=== PATIENT | female | born 1955 | race Caucasian/White ===

== ENCOUNTER → 2020-02-24 | Outpatient (CLI) | payer OTHER ==
--- NOTE | 2020-02-24 10:39 | MM ---
Reason for exam: additional evaluation requested from prior study. History: Patient is postmenopausal and is nulliparous. Family history of breast cancer in sister at age 70. Benign excisional biopsy of the left breast, 1999. Took hormonal contraceptives for 30 years beginning at age 23. Took estrogen for 2 years beginning at age 56. Physical Findings: Nurse did not find any significant physical abnormalities on exam. MG 3D Diag Mammo W/Cad KEVIN Bilateral CC and MLO view(s) were taken. XCCL view(s) were taken of the left breast. No prior studies available for comparison. The breast tissue is heterogeneously dense. This may lower the sensitivity of mammography. Finding: There are typically benign coarse, segmental calcifications in the left breast. These results were verbally communicated with the patient and result sheet given to the patient on 02/24/20. ASSESSMENT: Benign, BI-RAD 2 RECOMMENDATION: Routine screening mammogram of both breasts in 1 year. Obtain prior studies for comparison.
== END | disposition home or self-care (01) ==
LOC: RADMAMWWP 09:01
PROVIDERS: ATTEND Internal Medicine Geriatric Medicine
DX: N63.10 Unspecified lump in the right breast, unspecified quadrant (principal); N63.20 Unspecified lump in the left breast, unspecified quadrant
CPT/HCPCS: 77062; 77066

== ENCOUNTER → 2020-03-09 | Outpatient (CLI) | payer OTHER ==
--- NOTE | 2020-03-09 16:38 | BD ---
EXAMINATION TYPE: Axial Bone Density DATE OF EXAM: 03/09/2020 COMPARISON: NONE CLINICAL HISTORY: 65 YR OLD FEMALE....ICD-10 CODE: M81.0 OSTEOPOROSIS Height: 61.1 Weight: 133 FRAX RISK QUESTIONS: Alcohol (3 or more units per day): YES RISK FACTORS HISTORY OF: Family History of Osteoporosis: RAIAS, HER MOTHER, WITH HIP FX Postmenopausal woman: YES AT ABOUT 48 YRS OLD Take estrogen and/or progesterone medications: IN THE PAST FOR ABOUT 3-4 YRS Hyperparathyroidism: NO Adrenal Insufficiency: NO MEDICATIONS: Prednisone or other steroids: STEROIDAL INJECTIONS FOR YRS Additional Medications: BP MEDS, EFFEXOR,ATIVAN , CALCIUM AND VIT D Additional History: HYPERTENSION, EXAM MEASUREMENTS: Bone mineral densitometry was performed using the Pull System. Bone mineral density as measured about the Lumbar spine is: ----- L1-L4(G/cm2): 1.294 T Score Values are as follows: ----- L1: 0.0 ----- L2: 1.8 ----- L3: 1.3 ----- L4: 0.5 ----- L1-L4: 0.9 Bone mineral density THIS IS HER FIRST BONE DENSITY AT [facility] Bone mineral density about the R hip (g/cm2): 0.936 Bone mineral density about the L hip (g/cm2): 0.858 T Score values are as follows: -----R Neck: -0.7 -----L Neck: -1.7 -----R Total: -0.6 -----L Total: -1.2 Bone mineral density FIRST BONE DENSITY AT [facility] FRAX%s: THERE IS A 12.2% CHANCE FOR A MAJOR OSTEOPOROTIC FX AND A 2.1% FOR HIP.....PROBABILITY FOR FX IN 10 YRS TIME IMPRESSION: Osteopenia (T Score between -2.5 and -1). There is slightly increased risk of fracture and the patient may be considered for treatment. Re-Screen 2-5 years. NOTE: T-SCORE=SD OF THE YOUNG ADULT MEAN.
== END | disposition home or self-care (01) ==
LOC: RADBDWWP 10:26
PROVIDERS: ATTEND Internal Medicine Geriatric Medicine
DX: M85.80 Other specified disorders of bone density and structure, unspecified site (principal); M81.0 Age-related osteoporosis without current pathological fracture
CPT/HCPCS: 77080

== ENCOUNTER 2021-01-08 02:21 | Emergency (ER) | payer BC, OTHER ==
[2021-01-08 02:42] VITALS: BP 163/80; PULSE 75; RESP 18; TEMP 97.9
--- NOTE | 2021-01-08 03:31 | ED ---
Recheck HPI - General Chief Complaint: Extremity Problem,Nontraumatic Stated Complaint: cast issues Time Seen by Provider: 01/08/21 02:38 Source: patient, RN notes reviewed, old records reviewed Mode of arrival: ambulatory Limitations: no limitations - History of Present Illness Initial Comments: This is a 65-year-old female to the emergency room today. Patient comes in for bandage reevaluation and pain in place over prior bandage was. No new injuries no new complaints. Patient feels like her like maybe swelling to much to the point of having increased pain. Eyes no shortness of breath or chest pain no fevers no other complaints MD Complaint: wound re-check -: days(s) Returns Today for: persistent/worsening pain related to initial visit Symptoms Since Prior Visit: worsening pain Associated Symptoms: none Treatments Prior to Arrival: dressings, Given Pain Meds on - Related Data Allergies Allergy/AdvReac Type Severity Reaction Status Date / Time No Known Allergies Allergy Verified 01/08/21 02:42 Review of Systems ROS Statement: Those systems with pertinent positive or pertinent negative responses have been documented in the HPI. ROS Other: All systems not noted in ROS Statement are negative. Past Medical History Past Medical History: No Reported History History of Any Multi-Drug Resistant Organisms: None Reported Additional Past Surgical History / Comment(s): left foot bunion surgery Past Psychological History: No Psychological Hx Reported Smoking Status: Never smoker Past Alcohol Use History: None Reported Past Drug Use History: None Reported General Exam - General Exam Comments Initial Comments: Wound is bandaged appropriately here in the ER General appearance: alert, in no apparent distress Head exam: Present: atraumatic, normocephalic, normal inspection Eye exam: Present: normal appearance, PERRL, EOMI. Absent: scleral icterus, conjunctival injection, periorbital swelling ENT exam: Present: normal exam, mucous membranes moist Neck exam: Present: normal inspection. Absent: tenderness, meningismus, lymphadenopathy Respiratory exam: Present: normal lung sounds bilaterally. Absent: respiratory distress, wheezes, rales, rhonchi, stridor Cardiovascular Exam: Present: regular rate, normal rhythm, normal heart sounds. Absent: systolic murmur, diastolic murmur, rubs, gallop, clicks GI/Abdominal exam: Present: soft, normal bowel sounds. Absent: distended, tenderness, guarding, rebound, rigid Extremities exam: Present: normal inspection, full ROM, normal capillary refill. Absent: tenderness, pedal edema, joint swelling, calf tenderness Back exam: Present: normal inspection Neurological exam: Present: alert, oriented X3, CN II-XII intact Psychiatric exam: Present: normal affect, normal mood Skin exam: Present: warm, dry, intact, normal color. Absent: rash Course Vital Signs 01/08/21 02:37 Temperature 97.9 F Pulse Rate 75 Respiratory 18 Rate Blood Pressure 163/80 O2 Sat by Pulse 96 Oximetry - Reevaluation(s) Reevaluation #1: 01/08/21 03:29 Record is reviewed Reevaluation #2: 01/08/21 03:30 We did remove patient's prior bandaged with adequate pain relief, wound is reviewed bandaged Medical Decision Making - Medical Decision Making 65 female to the emergency department for evaluation patient's wound is related bandaged here in the ER she has pain relief and can be discharged home Disposition Clinical Impression: Encounter for assessment of wound Disposition: HOME SELF-CARE Condition: Good Instructions (If sedation given, give patient instructions): Bandage Change (ED), How to Use an Elastic Bandage (ED) Is patient prescribed a controlled substance at d/c from ED?: No Referrals: Enrique Florentino MD [Primary Care Provider] - 1-2 days
== END 2021-01-08 03:41 | disposition home or self-care (01) ==
LOC: EC 02:21
DX: Z48.00 Encounter for change or removal of nonsurgical wound dressing (principal)
CPT/HCPCS: 99282

== ENCOUNTER 2021-01-28 20:33 | Emergency (ER) | payer BC ==
--- NOTE | 2021-01-28 21:59 | US ---
EXAMINATION TYPE: US venous doppler duplex LE LT DATE OF EXAM: 01/28/2021 9:45 PM COMPARISON: NONE CLINICAL HISTORY: pain behind left knee, left foot casted. EC patient with popliteal fossa and knee p ain post left bunionectomy; cast on left BK to foot x 1 week. SIDE PERFORMED: Left TECHNIQUE: The lower extremity deep venous system is examined utilizing real time linear array sonog rai with graded compression, doppler sonography and color-flow sonography. VESSELS IMAGED: Common Femoral Vein Deep Femoral Vein Greater Saphenous Vein * Femoral Vein Popliteal Vein Small Saphenous Vein * Proximal Calf Veins (* superficial vessels) Left Leg: Grayscale, color doppler, spectral doppler imaging performed of the deep veins of the lower extremities. There is normal flow, compressibility, vascular waveforms. Soft tissue edema posterior to the knee joint. IMPRESSION: No sonographic evidence for deep vein thrombosis in the left lower extremity.
--- NOTE | 2021-01-28 22:34 | ED ---
General Adult HPI - General Chief complaint: Extremity Injury, Lower Stated complaint: L Leg Swelling, R/O DVT Time Seen by Provider: 01/28/21 21:57 Source: patient, family Mode of arrival: ambulatory Limitations: no limitations - History of Present Illness Initial comments: 65-year-old female patient presents the emergency department today for evaluatio n of left posterior knee pain. Patient states started 3 weeks ago after having foot surgery. She has a cast. She denies swelling to the leg. Denies any fever or chills. Denies any increased pain with movement. Denies history of blood clots. Denies any recent long car rides. Denies any recent diagnosis of cancer. Denies use of blood thinning medications. - Related Data Allergies Allergy/AdvReac Type Severity Reaction Status Date / Time No Known Allergies Allergy Verified 01/28/21 20:46 Review of Systems ROS Statement: Those systems with pertinent positive or pertinent negative responses have been documented in the HPI. ROS Other: All systems not noted in ROS Statement are negative. Past Medical History Past Medical History: No Reported History History of Any Multi-Drug Resistant Organisms: None Reported Additional Past Surgical History / Comment(s): left foot bunion surgery Past Psychological History: No Psychological Hx Reported Smoking Status: Never smoker Past Alcohol Use History: Occasional Past Drug Use History: None Reported General Exam Limitations: no limitations General appearance: alert, in no apparent distress, other (This is a well- developed, well-nourished adult female patient in no acute distress.) ENT exam: Present: normal exam, normal oropharynx, mucous membranes moist Respiratory exam: Present: normal lung sounds bilaterally. Absent: respiratory distress, wheezes, rales, rhonchi, stridor Cardiovascular Exam: Present: regular rate, normal rhythm, normal heart sounds. Absent: systolic murmur, diastolic murmur, rubs, gallop, clicks Extremities exam: Present: full ROM, normal capillary refill, other (There is a cast to the left lower leg and foot. Skin to the remainder the leg is pink, warm, dry. Cap refill less than 3 seconds. No swelling noted.). Absent: tenderness, pedal edema, joint swelling, calf tenderness Neurological exam: Present: alert, oriented X3, CN II-XII intact Psychiatric exam: Present: normal affect, normal mood Skin exam: Present: warm, dry, intact, normal color. Absent: rash Course Vital Signs 01/28/21 01/28/21 20:40 22:52 Temperature 97.8 F 98 F Pulse Rate 96 79 Respiratory 22 20 Rate Blood Pressure 117/78 127/77 O2 Sat by Pulse 97 98 Oximetry Medical Decision Making - Medical Decision Making 65-year-old female patient presented to the emergency department today for evaluation possible blood clot to the left lower extremity. She didn't reporting left posterior knee pain. Physical examination is unremarkable. No swelling. No redness. Ultrasound was negative. Vital signs are normal. She'll be discharged follow up with the primary care physician for recheck in 1- 2 days. Return parameters were discussed in detail. She verbalizes u nderstanding and agrees with this plan. My attending is Dr. Deutsch. - Radiology Data Radiology results: report reviewed, image reviewed Ultrasound of the left lower extremity is obtained. Report reviewed in its entirety. Impression by Dr. Salas shows no sonographic evidence for deep vein thrombosis in the left lower extremity. Disposition Clinical Impression: Left knee pain Disposition: HOME SELF-CARE Condition: Good Instructions (If sedation given, give patient instructions): Knee Pain (ED) Additional Instructions: Follow-up with medicare insurance specialist for further evaluation as soon as possible. Return for any new, worsening, or concerning symptoms. Is patient prescribed a controlled substance at d/c from ED?: No Referrals: Enrique Florentino MD [Primary Care Provider] - 1-2 days Neal Coffman MD [REFERRING] - 1-2 days Time of Disposition: 22:34
[2021-01-28 22:54] VITALS: BP 127/77; PULSE 79; RESP 20; TEMP 98
== END 2021-01-28 22:54 | disposition home or self-care (01) ==
LOC: EC 20:33
DX: M25.562 Pain in left knee (principal)
CPT/HCPCS: 99283

== ENCOUNTER → 2021-05-10 | Outpatient (CLI) | payer BC ==
--- NOTE | 2021-05-12 12:35 | MM ---
Reason for exam: screening (asymptomatic). Last mammogram was performed 1 year and 3 months ago. History: Patient is postmenopausal and is nulliparous. Family history of breast cancer in sister at age 70. Benign excisional biopsy of the left breast, 1999. Took hormonal contraceptives for 30 years beginning at age 23. Took estrogen for 2 years beginning at age 56. Physical Findings: A clinical breast exam by your physician is recommended on an annual basis and results should be correlated with mammographic findings. MG 3D Screening Mammo W/Cad Bilateral CC and MLO view(s) were taken. Prior study comparison: February 24, 2020, bilateral MG 3d diag mammo w/cad KEVIN. January 18, 2018, mammogram, performed at [facility]. The breast tissue is heterogeneously dense. This may lower the sensitivity of mammography. No significant changes when compared with prior studies. ASSESSMENT: Benign, BI-RAD 2 RECOMMENDATION: Routine screening mammogram of both breasts in 1 year.
== END | disposition home or self-care (01) ==
LOC: RADMAMWWP 14:25
PROVIDERS: ATTEND Internal Medicine Geriatric Medicine
DX: Z12.31 Encounter for screening mammogram for malignant neoplasm of breast (principal); Z78.0 Asymptomatic menopausal state; Z80.3 Family history of malignant neoplasm of breast
CPT/HCPCS: 77063; 77067

== ENCOUNTER 2021-09-12 17:21 | Emergency (ER) | payer BC, MEDICARE ==
[~2021-09-12 17:21] MED LIST: SODIUM CHLORIDE 0.9% 500 ML 500 ML in EMPTY BAG 1 BAG IV PRN
--- NOTE | 2021-09-12 19:04 | ED ---
URI HPI - General Chief Complaint: Upper Respiratory Infection Stated Complaint: Covid + Time Seen by Provider: 09/12/21 19:02 Source: patient, RN notes reviewed Mode of arrival: ambulatory Limitations: no limitations - History of Present Illness Initial Comments: This is a 66-year-old female who presents to the emergency department for a positive COVID test requesting antibody treatment. Her tested positive for COVID a few days ago and was treated with antibodies here. She states that he is feeling much better. She started having a headache, sore throat, fatigue, and a cough yesterday. She also noted fevers as high as 101.8 degrees F. She took a COVID test at home this morning and it returned positive. Patient requests antibody treatment. Denies any chills, dyspnea, chest pain, palpitations, abdominal pain, nausea, vomiting, diarrhea, or back pain. MD Complaint: fever, cough, sore throat Onset/Timin -: days(s) Context: sick contacts Associated Symptoms: fever, myalgias, headache, sore throat, cough - Related Data Allergies Allergy/AdvReac Type Severity Reaction Status Date / Time No Known Allergies Allergy Verified 09/12/21 17:37 Review of Systems ROS Statement: Those systems with pertinent positive or pertinent negative responses have been documented in the HPI. ROS Other: All systems not noted in ROS Statement are negative. Past Medical History Past Medical History: No Reported History Additional Past Medical History / Comment(s): covid + History of Any Multi-Drug Resistant Organisms: None Reported Additional Past Surgical History / Comment(s): left foot bunion surgery Past Psychological History: No Psychological Hx Reported Smoking Status: Never smoker Past Alcohol Use History: Occasional Past Drug Use History: None Reported General Exam Limitations: no limitations General appearance: alert, in no apparent distress Head exam: Present: atraumatic, normocephalic, normal inspection ENT exam: Present: normal exam, normal oropharynx, mucous membranes moist Respiratory exam: Present: normal lung sounds bilaterally. Absent: respiratory distress, wheezes, rales, rhonchi, stridor Cardiovascular Exam: Present: regular rate, normal rhythm, normal heart sounds. Absent: systolic murmur, diastolic murmur, rubs, gallop, clicks Neurological exam: Present: alert, oriented X3, CN II-XII intact Psychiatric exam: Present: normal affect, normal mood Skin exam: Present: warm, dry, intact, normal color. Absent: rash Course Vital Signs 09/12/21 09/12/21 09/12/21 17:35 19:31 21:57 Temperature 97.9 F 98.8 F Pulse Rate 91 84 Respiratory 20 26 H 22 Rate Blood Pressure 177/98 156/87 O2 Sat by Pulse 97 97 Oximetry Medical Decision Making - Medical Decision Making This is a 66-year-old female who presents to the emergency department for monoclonal antibody treatment. This was administered and the patient was monitored for an hour afterwards with no complications. Instructed her to make sure she gets plenty of rest and to remain well-hydrated. Also advised alternating with Tylenol and ibuprofen as needed for fevers and pain relief. Instructed her to quarantine for 5 days and to practice extra precautions for an additional 5 days, including always wearing a mask around others and avoiding travel. Return precautions reviewed in depth, the patient is instructed to return to the emergency department with any new, worsening, or concerning symptoms. Patient verbalized understanding. This case was discussed in detail with the attending ED physician. Presentation, findings, and treatment plan discussed in detail as well. Disposition Clinical Impression: COVID-19 Disposition: HOME SELF-CARE Instructions (If sedation given, give patient instructions): COVID-19 (Coronavirus Disease 2019) (ED), How to Recover from COVID-19 at Home (ED) Additional Instructions: Return to the emergency department with any new, worsening, or concerning symptoms. Make sure that you remain well-hydrated and get plenty of rest. Take Tylenol and ibuprofen as needed for fevers. Make sure that you quarantine for 5 days and practice extra precautions for an additional 5 days, including always wearing a mask around others and avoiding travel. Is patient prescribed a controlled substance at d/c from ED?: No Referrals: Enrique Florentino MD [Primary Care Provider] - 1-2 days
[2021-09-12] MEDS ORDERED: ONDANSETRON 4 MG/2 ML VIAL IVP STA (20:20)
[2021-09-12] MEDS ORDERED: ONDANSETRON 4 MG ODT STARTER PACK 2 TAB BTL PO STA (20:41)
[2021-09-12] MEDS ORDERED: BEBTELOVIMAB (EUA) 175 MG/2 ML VIAL IV ONE (20:45)
[2021-09-12 21:58] VITALS: BP 156/87; PULSE 84; RESP 22; TEMP 98.8
== END 2021-09-12 22:09 | disposition home or self-care (01) ==
LOC: EC 17:21
DX: U07.1 COVID-19 (principal)
CPT/HCPCS: 96374; 99283; J2405; S0119; Q0222

== ENCOUNTER → 2021-10-11 | Outpatient (CLI) | payer BC, MEDICARE ==
--- NOTE | 2021-10-11 14:25 | XR ---
EXAMINATION TYPE: XR thoracic spine complete DATE OF EXAM: 10/11/2021 COMPARISON: None HISTORY: Back pain TECHNIQUE: 3 view thoracic spine FINDINGS: There are 12 thoracic type vertebral bodies. Pedicles are intact. Disc heights are preserve d. Vertebral body heights are preserved. There is a scoliosis present with convexity to the left cent ered at approximately T9-10. Spondylosis and degenerative disc changes are noted in the lower cervica l spine. IMPRESSION: 1. Scoliosis.
--- NOTE | 2021-10-11 14:28 | XR ---
EXAMINATION TYPE: XR cervical spine comp DATE OF EXAM: 10/11/2021 COMPARISON: None HISTORY: Back pain and cervicalgia TECHNIQUE: 5 view cervical spine FINDINGS: There is a cervical kyphosis centered at C4. There is loss of disc height and endplate scle rosis at C4-5 C5-6. Anterior vertebral body spurring is present C3-C7 posterior spinal lamellar line appears intact. Prevertebral space is normal. Facet hypertrophy is present greater on the left upper cervical spine. Mild foraminal narrowing is present within right foramen especially noted at C6-7. Mo derate narrowing is present to the left mid and upper cervical spine foramen. Odontoid is nondiagnost ic with overlying occiput. IMPRESSION: 1. Cervical kyphosis. 2. Foraminal narrowing greater within the left upper cervical spine 3. Degenerative disc changes C4-5 and C5-6 C6-7
== END | disposition home or self-care (01) ==
LOC: RADXRMAIN 11:55
PROVIDERS: ATTEND Internal Medicine Geriatric Medicine
DX: M50.323 Other cervical disc degeneration at C6-C7 level (principal); M47.812 Spondylosis without myelopathy or radiculopathy, cervical region; M40.202 Unspecified kyphosis, cervical region; M99.71 Connective tissue and disc stenosis of intervertebral foramina of cervical region
CPT/HCPCS: 72050; 72072

== ENCOUNTER → 2021-12-06 | Outpatient (CLI) | payer BC | END | disposition home or self-care (01) | LOC: LABWHC1 13:29 | PROVIDERS: ATTEND Orthopaedic Surgery Foot and Ankle Surgery | DX: Z00.00 Encounter for general adult medical examination without abnormal findings (principal) | CPT/HCPCS: 36415; 82306 ==

== ENCOUNTER → 2022-06-07 | Outpatient (CLI) | payer OTHER ==
--- NOTE | 2022-06-08 10:01 | MM ---
Reason for Exam: Screening (asymptomatic). Last screening mammogram was performed 12 month(s) ago. Patient History: Menarche at age 13. Patient has no children. Postmenopausal. Estrogen for 2 years from age 56 until age 58. Hormonal Contraceptives for 30 years from age 23 until age 53. 1999, Benign Excisional Biopsy on the left side. 1981, Bilateral Implant Removal. Sister had breast cancer, age 70. Risk Values: Sandra 5 year model risk: 3.6%. Prior Study Comparison: 01/18/2018 Screening Mammogram, [facility]. 02/24/2020 Bilateral Diagnostic Mammogram, [facility]. 05/10/2021 Bilateral Screening Mammogram, [facility]. Tissue Density: The breast tissue is heterogeneously dense. This may lower the sensitivity of mammography. Findings: Analyzed By CAD. There is some coarse calcification within the left breast. Scattered punctate calcifications are present bilaterally. No suspicious groups of microcalcifications, spiculated or lobular masses, architectural distortion or other secondary signs of malignancy are mammographically apparent. Overall Assessment: Benign, BI-RAD 2 Management: Screening Mammogram of both breasts in 1 year. A negative mammogram report should not preclude additional follow up of suspicious palpable abnormalities. Patient should continue monthly self breast exam. A clinical breast exam by your physician is recommended on an annual basis and results should be correlated with mammographic findings. Electronically signed and approved by: Brian May D.O. Radiologis
== END | disposition home or self-care (01) ==
LOC: RADMAMWWP 13:01
PROVIDERS: ATTEND Internal Medicine Geriatric Medicine
DX: Z12.31 Encounter for screening mammogram for malignant neoplasm of breast (principal); Z78.0 Asymptomatic menopausal state; Z80.3 Family history of malignant neoplasm of breast
CPT/HCPCS: 77063; 77067

== ENCOUNTER → 2022-06-08 | Outpatient (CLI) | payer OTHER ==
--- NOTE | 2022-06-08 15:22 | BD ---
EXAMINATION TYPE: Axial Bone Density DATE OF EXAM: 06/08/2022 CLINICAL HISTORY: 67 years old Female. ICD-10 CODE: M81.0 AGE-RELATED OSTEOPOROSIS W/O CURRENT PATHO LO Height: 61.5 Weight: 135.1 FRAX RISK QUESTIONS: Alcohol (3 or more units per day): yes Family History (Parent hip fracture): mother Glucocorticoids (More than 3mos): no History of Fracture in Adulthood: no Secondary Osteoporosis: 1. Type 1 Diabetes: no 2. Hyperthyroidism: no 3. Menopause before 45: no 4. Malnutrition: no 5. Chronic liver disease: no Rheumatoid Arthritis: no Current Tobacco Use: no RISK FACTORS HISTORY OF: Hip Fracture (Right/Left): no Spine Fracture: no History of Wrist Fracture: no Surgery to Spine/Hip(right/left)/Wrist (right/left): no Family History of Osteoporosis: mother Active: yes Diet low in dairy products/other sources of calcium: yes Postmenopausal woman: yes Take estrogen and/or progesterone medications: no Lost more than 2 inches in height since high school: no Frequent falls: no Poor Health: no Hyperparathyroidism: no Adrenal Insufficiency: no MEDICATIONS: Prednisone or other steroids: no Thyroid Medications: no Osteoporosis Medications: no Additional Medications: Vit D, Calcium, BP Meds, Cholesterol Meds, Anxiety Meds, Additional History: EXAM MEASUREMENTS: Bone mineral densitometry was performed using the [employer] System. Bone mineral density as measured about the Lumbar spine is: ----- L1-L4(G/cm2): 1.228 T Score Values are as follows: ----- L1: -0.4 ----- L2: 1.3 ----- L3: 1.4 ----- L4: -0.4 ----- L1-L4: 0.4 Z Score Values are as follows: ----- L1: 1.4 ----- L2: 3.1 ----- L3: 3.2 ----- L4: 1.3 ----- L1-L4: 2.2 Bone mineral density has: decreased -5.1 % since study of: 03/09/2020 Bone mineral density about the R hip (g/cm2): 0.882 Bone mineral density about the L hip (g/cm2): 0.835 T Score values are as follows: -----R Neck: -1.8 -----L Neck: -1.8 -----R Total: -1.0 -----L Total: -1.4 Z Score values are as follows: -----R Neck: -0.1 -----L Neck: -0.1 -----R Total: 0.5 -----L Total: 0.1 Bone mineral density has: decreased -4.2 % since study of: 03/09/2020 FRAX%s: The graph provided illustrates a 21.7%% chance for a major osteoporotic fx and a 5.3% chance for the hips probability for fx in 10 years time. IMPRESSION: Osteopenia (T Score between -2.5 and -1). There is slightly increased risk of fracture and the patient may be considered for treatment. Re-Screen 2-5 years. NOTE: T-SCORE=SD OF THE YOUNG ADULT MEAN.
== END | disposition home or self-care (01) ==
LOC: RADBDWWP 14:21
PROVIDERS: ATTEND Internal Medicine Geriatric Medicine
DX: M81.0 Age-related osteoporosis without current pathological fracture (principal); M85.89 Other specified disorders of bone density and structure, multiple sites; Z78.0 Asymptomatic menopausal state
CPT/HCPCS: 77080

== ENCOUNTER → 2022-07-11 | Outpatient (CLI) | payer MEDICARE ==
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
== END | disposition home or self-care (01) ==
LOC: RADMRIMAIN 09:25
PROVIDERS: ATTEND Internal Medicine Geriatric Medicine
DX: M47.22 Other spondylosis with radiculopathy, cervical region (principal)
CPT/HCPCS: 72141

== ENCOUNTER → 2023-06-11 | Outpatient (CLI) | payer MEDICARE ==
--- NOTE | 2023-06-12 14:19 | MM ---
Reason for Exam: Screening (asymptomatic). Last mammogram was performed 1 year(s) and 1 month(s) ago. Patient History: Menarche at age 13. Patient has no children. Postmenopausal. Estrogen for 2 years from age 56 until age 58. Hormonal Contraceptives for 30 years from age 23 until age 53. 1999, Benign Excisional Biopsy on the left side. 1981, Bilateral Implant Removal. Sister had breast cancer, age 70. Risk Values: Sandra 5 year model risk: 3.6%. NCI Lifetime model risk: 10.4%. Prior Study Comparison: 02/24/2020 Bilateral Diagnostic Mammogram, [facility]. 05/10/2021 Bilateral Screening Mammogram, [facility]. 06/07/2022 Bilateral MG 3D screening mammo w/cad, [facility]. Tissue Density: There are scattered areas of fibroglandular density. Findings: Analyzed By CAD. Right breast: There is no suspicious group of microcalcifications or new suspicious mass. Left breast: There is no suspicious group of microcalcifications or new suspicious mass. Benign-appearing calcifications left breast. Overall Assessment: Benign, BI-RAD 2 Management: Screening Mammogram of both breasts in [address] [facility] will attempt to contact patient to return for supplemental views and ultrasound if indicated. Patient should continue monthly self-breast exams. A clinical breast exam by your physician is recommended on an annual basis. This exam should not preclude additional follow-up of suspicious palpable abnormalities. Note on Sandra scores and lifetime risk: 1. A Sandra score greater than 3% is considered moderate risk. If this is the case, consider specialist referral to assess eligibility for a risk reducing agent. 2. If overall lifetime risk for the development of breast cancer is 20% or higher, the patient may qualify for future screening with alternating mammogram and breast MRI. Electronically signed and approved by: Talha Gomez DO
== END | disposition home or self-care (01) ==
LOC: RADMAMWWP 14:55
PROVIDERS: ATTEND Internal Medicine Geriatric Medicine
DX: Z12.31 Encounter for screening mammogram for malignant neoplasm of breast (principal); Z78.0 Asymptomatic menopausal state; Z80.3 Family history of malignant neoplasm of breast
CPT/HCPCS: 77063; 77067

== ENCOUNTER → 2023-07-03 | Outpatient (CLI) | payer MEDICARE ==
[2023-07-03 13:30] VITALS: BP 146/90; PULSE 78; RESP 17; TEMP 98.1
--- NOTE | 2023-07-03 14:24 | P.HPOB ---
History of Present Illness H&P Date: 07/03/23 Chief Complaint: The patient is here for her routine gynecologic exam. This is a 68-year-old G0 with an LMP of approximately 2003. She is here to establish with this office. It has been about 1 year since her last pelvic exam. She saw Dr. Lewis for 1 visit only which was last year. She is without gynecologic complaints. Review of Systems The patient's weight has been stable over the last year. She denies respiratory, cardiac, or G.I. problems. 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 History of Any Multi-Drug Resistant Organisms: None Reported Past Surgical History: Tonsillectomy Additional Past Surgical History / Comment(s): left foot bunion surgery. Rhinoplasty, left foot surgery x 2, right rotator cuff surgery, Bartholin's gland removed. Colonoscopy 2022.(next after 5yr) Past Psychological History: No Psychological Hx Reported Smoking Status: Never smoker Past Alcohol Use History: Daily (2 glasses of wine per day.) Past Drug Use History: None Reported Additional History: She has been since 1996 and is retired. She moved from [place]. - Past Family History Mother Additional Family Medical History / Comment(s): History of osteoporosis and following a colon blockage. Sister(s) Family Medical History: Cancer Additional Family Medical History / Comment(s): Breast cancer. Father Family Medical History: CVA/TIA Additional Family Medical History / Comment(s): . Medications and Allergies Home Medications Medication Instructions Recorded Confirmed Type Amlodipine Besylate/Valsartan 1 tablet PO DAILY 07/03/23 07/03/23 History [Amlodipine Besylate/Valsartan 5-160 mg] Calcium Carbonate/Vitamin D3 1 tab PO DAILY 07/03/23 07/03/23 History [Calcium 600-Vit D3 5 Mcg (200 Iu)] Cholecalciferol [Vitamin D3 (10 1 tab PO DAILY 07/03/23 07/03/23 History Mcg = 400 Iu)] Rosuvastatin Calcium 1 tab PO DAILY 07/03/23 07/03/23 History Vitamin D3/Vitamin K2 (Mk4) 1 tab PO DAILY 07/03/23 07/03/23 History [Vitamin K2 Plus D3 Tablet] Zinc Citrate [Zinc] 1 tab PO DAILY 07/03/23 07/03/23 History Allergies Allergy/AdvReac Type Severity Reaction Status Date / Time No Known Allergies Allergy Verified 07/03/23 13:14 Exam Vital Signs Temp Pulse Resp BP Pulse Ox 07/03/23 13:26 98.1 F 78 17 146/90 100 Intake and Output 07/02/23 07/03/23 07/03/23 22:59 06:59 14:59 Other: Weight 63.049 kg Height 5 feet 3 inches, weight 139 pounds, BMI 24.6 This is a well-developed well-nourished white female who is alert and oriented times 3 in no acute distress. HEENT: Within normal limits. NECK: Supple without mass or thyromegaly. CHEST AND LUNGS: Clear to auscultation. HEART: Regular rate and rhythm. BREASTS: Are without mass or discharge. AXILLARY EXAM: Negative for adenopathy. BACK: Negative for CVA tenderness. ABDOMEN: Soft, nontender, without palpable masses. PELVIC EXAM: Normal external genitalia with mild to moderate atrophy. Cervix and vagina appear normal with mild to moderate atrophy. The cervix is nulliparous and somewhat stenotic secondary to atrophy. There is no unusual discharge. There is no evidence of prolapse. The uterus is midposition, nongravid size and nontender. There are no palpable adnexal masses or tenderness. RECTAL EXAM: Rectovaginal exam is negative for mass or tenderness and is negative for occult blood. EXTREMITIES: Nontender. IMPRESSION: 1. 68-year-old menopausal female with normal gynecologic exam. 2. History of osteopenia 3. History of genital HSV with infrequent outbreaks. PLAN: 1. Pap smear was performed. She will sign a records release to so I can obtain any Pap smears done by Dr. Lewis in the past. When we have determined she has had adequate screening, we will consider discontinuing Pap smears 2. Self breast awareness was discussed with the patient. We have also discussed symptoms associated with inflammatory breast cancer. 3. Screening mammogram was done on 06/11/2023 and was benign. She will repeat this after 1 year. 4. Osteoporosis prevention was discussed. I have stressed the importance of adequate calcium, vitamin D and regular exercise. Recommended amounts of calcium and vitamin D were also discussed. Bone density test was done on 06/08/2022. We will plan on repeating this next year. 5. Valtrex 500 mg twice daily x 3 days. This will be started at the onset of an HSV outbreak. Electronic prescription will be sent to [facility] on [facility]. 6. She was advised to return in one year for her annual well woman exam.
== END ==
LOC: WWCWWP 12:54
PROVIDERS: ATTEND Obstetrics & Gynecology
DX: Z78.0 Asymptomatic menopausal state (principal); M85.80 Other specified disorders of bone density and structure, unspecified site

== ENCOUNTER → 2023-07-13 | Outpatient (CLI) | payer MEDICARE ==
--- NOTE | 2023-07-13 12:51 | XR ---
EXAMINATION TYPE: XR toes LT DATE OF EXAM: 07/13/2023 12:33 PM CLINICAL INDICATION:Female, 68 years old with history of M79.672 PAIN IN LEFT FOOT; [facility] COMPARISON: None TECHNIQUE: XR toes LT examined in the AP, oblique, and lateral projections. FINDINGS: No evidence of any acute osseous pathology. No evidence of soft tissue swelling. Joints are preserve d. Fixation hardware in the second and third metatarsal heads which appear intact. Fixation hardware in the first digit metatarsal appears intact. Degeneration changes of the joints of the foot with brie nt space narrowing osteophyte formation. IMPRESSION: 1. No evidence of acute fracture. Mild 2. 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
== END | disposition home or self-care (01) ==
LOC: RADXRMAIN 12:15
PROVIDERS: ATTEND Internal Medicine Geriatric Medicine
DX: M19.072 Primary osteoarthritis, left ankle and foot (principal)